=== PATIENT | male | born 1960 | race Caucasian/White ===

== ENCOUNTER 2021-03-09 07:25 | Emergency (ER) | payer MEDICAID, OTHER ==
[~2021-03-09] VITALS: Ht 172.7 cm; Wt 63.5 kg
--- NOTE | 2021-03-09 07:58 | NUR ---
AT BEDSIDE FOR EVAL.
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
--- NOTE | 2021-03-09 08:50 | NUR ---
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
[2021-03-09 10:19] VITALS: BP 132/83
--- NOTE | 2021-03-09 10:19 | NUR ---
Patient discharged to home in stable condition. Written and verbal after care instructions given. Patient verbalizes understanding of instruction.
== END 2021-03-09 10:20 | disposition home or self-care (01) ==
LOC: ER 07:25
DX: S40.021A Contusion of right upper arm, initial encounter (principal); Z60.2 Problems related to living alone; W18.39XA Other fall on same level, initial encounter; Y93.89 Activity, other specified; Y92.89 Other specified places as the place of occurrence of the external cause; Y99.8 Other external cause status
CPT/HCPCS: 93971-TC

== ENCOUNTER 2023-01-11 14:46 | Emergency (ER) | payer OTHER ==
[~2023-01-11] VITALS: Ht 172.7 cm; Wt 62.6 kg
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
--- NOTE | 2023-01-11 19:41 | NUR ---
STEM SHAPER AT PT'S BEDSIDE
[2023-01-11 19:55] LABS: BASOPHILS % (AUTO) 0.5 % (0.0-2.0); CALCIUM, SERUM 8.6 mg/dL (8.5-10.1); CARBON DIOXIDE 27 mmol/L (21-32); CHLORIDE 96 mmol/L (98-107); CREATININE 0.6 mg/dL (0.6-1.3); EOSINOPHILS % (AUTO) 1.6 % (0.0-6.0); GLUCOSE 89 mg/dL (74-106); HEMATOCRIT 36 % (39-51); HEMOGLOBIN 11.9 g/dL (13.5-17.5); LYMPHOCYTES # (AUTO) 2.2 K/uL (0.8-4.8); LYMPHOCYTES % (AUTO) 50.5 % (20.0-44.0); MEAN CORPUSCULAR HGB CONC 33 g/dl (31.0-36.0); MEAN CORPUSCULAR VOLUME 97 fL (80-96); MONOCYTES # (AUTO) 0.5 K/uL (0.1-1.30); MONOCYTES % (AUTO) 11.5 % (2.0-12.0); NEUTROPHILS # (AUTO) 1.6 K/uL (1.8-8.9); NEUTROPHILS % (AUTO) 35.9 % (43.0-81.0); PLATELET COUNT (AUTO) 54 K/uL (150-450); RED BLOOD CELL COUNT(AUTO) 3.71 MIL/uL (4.5-6.0); SODIUM SERUM 134 mmol/L (136-145); UREA NITROGEN, BLOOD 7 mg/dL (7-18); WHITE BLOOD COUNT (AUTO) 4.4 K/uL (4.3-11.0)
[2023-01-11] MEDS ORDERED: POTASSIUM CHLORIDE 20 MEQ TAB.PRT.SR PO ONE ×2 (20:30→20:32)
[2023-01-11 20:39] LABS: EOSINOPHILS % (MANUAL) 2 % (0-4); LYMPHOCYTES % (MANUAL) 50 % (16-48); MONOCYTES % (MANUAL) 8 % (0-11.0); NEUTROPHILS % (MANUAL) 40 (42-76)
[2023-01-12 03:41] VITALS: BP 110/66
--- NOTE | 2023-01-12 03:41 | NUR ---
Patient discharged to home in stable condition. Written and verbal after care instructions given. Patient verbalizes understanding of instruction.
== END 2023-01-12 03:41 | disposition home or self-care (01) ==
LOC: ER 14:48
DX: R42 Dizziness and giddiness (principal); F10.129 Alcohol abuse with intoxication, unspecified; E87.6 Hypokalemia; D69.6 Thrombocytopenia, unspecified; Z60.2 Problems related to living alone; Y90.9 Presence of alcohol in blood, level not specified
CPT/HCPCS: 36415; 70450-TC; 71045-TC; 80048-TC; 82962-TC; 84484-TC; 85025-TC